=== PATIENT | male | born 1970 | race African-American/Black ===

== ENCOUNTER 2017-11-17 22:42 | Emergency (ER) | payer OTHER ==
[~2017-11-17] VITALS: Ht 170.2 cm; Wt 88.5 kg
[2017-11-17 22:55] VITALS: BP 128/78
[2017-11-17] MEDS ORDERED: Norco 5mg/325mg tab PO ONE (23:15)
[2017-11-17 23:49] VITALS: BP 130/72
[2017-11-18] MEDS ORDERED: IMITREX50 MG ORAL (00:13)
[2017-11-18 00:15] VITALS: BP 130/72
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
== END 2017-11-18 00:15 | disposition home or self-care (01) ==
LOC: EMR 23:08
DX: G43.909 Migraine, unspecified, not intractable, without status migrainosus (principal); S09.8XXA Other specified injuries of head, initial encounter; Y04.2XXA Assault by strike against or bumped into by another person, initial encounter; Y92.9 Unspecified place or not applicable; J45.909 Unspecified asthma, uncomplicated
CPT/HCPCS: 70450; 99284